=== PATIENT | male | born 1980 | race Caucasian/White ===

== ENCOUNTER 2024-03-27 12:56 | Emergency (ER) | payer OTHER ==
[~2024-03-27] VITALS: Ht 177.8 cm; Wt 61.2 kg
[2024-03-27 12:58] VITALS: BP 134/91; PULSE 81; RESP 18; TEMP 97.5; O2SAT 94
[2024-03-27] MEDS ORDERED: CHLO-836 PO (13:24)
[2024-03-27 13:33] VITALS: BP 134/91; PULSE 81; RESP 18; TEMP 97.5; O2SAT 94
== END 2024-03-27 13:33 | disposition home or self-care (01) ==
LOC: MED 12:56
DX: G47.00 Insomnia, unspecified (principal); F10.239 Alcohol dependence with withdrawal, unspecified; Z98.890 Other specified postprocedural states; Y90.9 Presence of alcohol in blood, level not specified
CPT/HCPCS: 99283

== ENCOUNTER 2024-05-24 16:18 | Emergency (ER) | payer OTHER ==
[~2024-05-24] VITALS: Ht 177.8 cm; Wt 61.2 kg
[~2024-05-24 16:18] MED LIST: CHLO-757 PO
[2024-05-24 16:41] VITALS: BP 143/91; PULSE 90; RESP 18; TEMP 98.1; O2SAT 95
[2024-05-24] MEDS ORDERED: CHLO-757 PO (17:35)
[2024-05-24 18:20] VITALS: BP 137/70; PULSE 79; RESP 18; TEMP 97.3; O2SAT 98
== END 2024-05-24 18:20 | disposition home or self-care (01) ==
LOC: MED 16:18
DX: F10.90 Alcohol use, unspecified, uncomplicated (principal); F41.9 Anxiety disorder, unspecified; Z79.899 Other long term (current) drug therapy; Y90.9 Presence of alcohol in blood, level not specified
CPT/HCPCS: 99283